=== PATIENT | female | born 1945 | race Caucasian/White ===

== ENCOUNTER 2016-08-23 12:23 | Observation (INO) | payer OTHER ==
[~2016-08-23] VITALS: Ht 152.4 cm; Wt 76.2 kg
[2016-08-28] MEDS ORDERED: PRINIVIL10 MG PO (11:07)
[2016-08-28] MEDS ORDERED: SYNTHROID75 MCG PO (11:07)
[2016-08-28] MEDS ORDERED: PROVENTIL HFA6.7 GM IH (11:08)
[2016-08-28] MEDS ORDERED: LACTULOSE20 GM/30 M PO (11:08)
[2016-08-28] MEDS ORDERED: MAGOX 400400 MG PO (11:08)
[2016-08-28] MEDS ORDERED: SENNA8.6 MG PO (11:09)
[2016-08-28] MEDS ORDERED: NORCO 10-325 T1 EACH PO (11:09)
[2016-08-28] MEDS ORDERED: PROBIOTIC1 EACH PO (11:10)
[2016-08-28] MEDS ORDERED: VITAMIN B-121000 MCG PO (11:10)
[2016-08-28] MEDS ORDERED: OMEPRAZOLE40 MG PO (11:11)
[2016-08-28] MEDS ORDERED: COUMADIN5 MG PO (11:12)
[2016-08-28] MEDS ORDERED: SIMETHICONE80 MG PO (11:12)
[2016-08-28] MEDS ORDERED: NEURONTIN800 MG PO (11:12)
[2016-08-28] MEDS ORDERED: ZOFRAN4 MG PO (11:13)
[2016-08-28] MEDS ORDERED: POLYETHYLENE GL17 GM PO (11:13)
[2016-08-28] MEDS ORDERED: CARAFATE1 GM PO (11:14)
[2016-08-28] MEDS ORDERED: IPRAT-ALBUT 0.5-3 ML NEB (11:15)
[2016-08-28] MEDS ORDERED: LASIX20 MG PO (11:16)
== END 2016-08-25 15:45 | disposition home or self-care (01) ==
LOC: ER 12:23 → MED 14:07
PROVIDERS: ADMIT Internal Medicine
DX: R11.10 Vomiting, unspecified (principal); T40.2X5A Adverse effect of other opioids, initial encounter; D70.9 Neutropenia, unspecified; K21.9 Gastro-esophageal reflux disease without esophagitis; I10 Essential (primary) hypertension; E11.9 Type 2 diabetes mellitus without complications; I82.4Z2 Acute embolism and thrombosis of unspecified deep veins of left distal lower extremity; M19.90 Unspecified osteoarthritis, unspecified site; Z88.0 Allergy status to penicillin; Z88.1 Allergy status to other antibiotic agents; Z88.8 Allergy status to other drugs, medicaments and biological substances; Z91.013 Allergy to seafood; Z79.01 Long term (current) use of anticoagulants; Z79.899 Other long term (current) drug therapy; Z90.49 Acquired absence of other specified parts of digestive tract; Z90.710 Acquired absence of both cervix and uterus; Z96.619 Presence of unspecified artificial shoulder joint; Z98.890 Other specified postprocedural states
CPT/HCPCS: 36415; 96361; 96372; 96374; 96375; 96376; G0378; J1650